=== PATIENT | female | born 1960 | race Caucasian/White ===

== ENCOUNTER 2016-03-06 09:55 | Outpatient (CLI) | payer BC ==
[2012-09-08 08:20] VITALS: BP 150/68
--- NOTE | 2016-03-06 18:42 | Diagnostic Imaging Report ---
~ [facility] [address] [facility] [address] [place], [place]. [address] ~ ~ ~ ~ Report Submission Date: Mar 06, 2016 6:35:42 PM DIAZO TECHNICIAN Patient ~ Study Name: KASEY SAENZ ~ Date: Mar 06, 2016 10:30:21 AM DIAZO TECHNICIAN ~ Modality Type: MR Gender: F ~ Description: MRI LOW EXT NON JNT W/O CONT : 62 ~ Institution: [facility] Physician: GOPAL PARRA MD ~ ~ ~ ~ Magnetic resonance imaging of the right knee without contrast History: Knee pain and instability Findings: Obesity is observed. In the patellofemoral compartment there is full thickness cartilage loss along the lateral patellar facet. A small joint effusion is present. Mild trochlear chondromalacia is present. The quadriceps tendon, patellar tendon, and patellar retinacula are intact. The anterior and posterior cruciate ligaments are intact. In the medial compartment, there is a complex tear of the medial meniscus body. The anterior and posterior horns are intact. Localized full thickness cartilage loss is present in the weightbearing surface of the joint. The medial collateral ligament is intact. In the lateral compartment, the articular cartilage, lateral meniscus, and lateral collateral ligament complex are intact. Impression: 1. Complex tear of the medial meniscal body. 2. 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 3. Small joint effusion. 4. Large popliteal cyst. 5. Obesity. ~ Electronically signed on Mar 06, 2016 6:35:42 PM DIAZO TECHNICIAN by: Saulo GIRON
== END 2016-03-06 09:56 ==
LOC: RAD 09:55
PROVIDERS: ATTEND Family Medicine
DX: S83.232A Complex tear of medial meniscus, current injury, left knee, initial encounter (principal); M25.561 Pain in right knee
CPT/HCPCS: 73718

== ENCOUNTER 2016-05-15 19:58 | Outpatient (CLI) | payer BC ==
[2012-09-08 08:20] VITALS: BP 150/68
[2016-05-16 05:48] LABS: APPEARANCE,URINE CLOUDY (CLEAR); COLOR,URINE AMBER (YELLOW); OCCULT BLOOD,URINE 3+ (NEGATIVE); PH URINE 6.5 (5.0 - 8.0); UROBILINOGEN URINE 0.2 Eu (0.2-1.0)
== END 2016-05-15 20:00 ==
LOC: LAB 19:58
PROVIDERS: ATTEND Nurse Practitioner
DX: R30.0 Dysuria (principal)
CPT/HCPCS: 81002

== ENCOUNTER 2018-03-02 09:17 | Outpatient (CLI) | payer BC ==
[2012-09-08 08:20] VITALS: BP 150/68
[2018-03-02 10:55] LABS: eGFR (Non-African) > 60
== END 2018-03-02 09:25 ==
LOC: LAB 09:17
PROVIDERS: ATTEND Nurse Practitioner Family
DX: I10 Essential (primary) hypertension (principal); R53.83 Other fatigue
CPT/HCPCS: 36415; 80053; 80061; 84439; 84443; 84481